=== PATIENT | male | born 1970 | race Caucasian/White ===

== ENCOUNTER 2025-08-01 23:23 | Inpatient (IN) | payer BC ==
[~2025-08-01] VITALS: Ht 190.5 cm; Wt 121.3 kg
[2025-08-01] MEDS ORDERED: ASPIRIN 81 MG CHEW PO ONE (23:30)
[2025-08-01 23:39] LABS: BASOPHILS 0.3 % (0.2-1.2); EOSINOPHILS 0 % (0.8-7.0); LYMPHOCYTES 5.9 % (21.8-53.1); MCH 30.2 PG (25.7-32.2); MCHC 32.7 g/dL (32.3-36.5); MCV 92.4 fL (79.0-92.2); MONOCYTES 4.3 % (5.3-12.2); NEUTROPHILS 88.7 % (34.0-67.9); RBC 5.79 M/uL (4.63-6.08)
[2025-08-01] MEDS ORDERED: FAMOTIDINE 20 MG/ 2 ML VIAL IV ONE (23:45)
[2025-08-01] MEDS ORDERED: LACTATED RINGER'S 1,000 ML IV ONE (23:45)
[2025-08-01 23:57] LABS: INR 1.17 (0.80-1.30); PROTIME 14.1 Sec (11.2-14.2)
[2025-08-02] VITALS (22 sets, daily range): BP systolic 91–124; BP diastolic 57–77
[2025-08-02 00:06] LABS: ALT (SGPT) 25 U/L (14-59); AST (SGOT) 10 U/L (15-37); GLOMERULAR FILTRATION RATE,EST 28 mL/min (>60); PROTEIN, TOTAL 8.9 g/dL (6.4-8.2); UREA NITROGEN 43 mg/dL (7-18)
[2025-08-02 00:13] LABS: LACTIC ACID, BLOOD 4.8 mmol/L (0.4-2.0)
[2025-08-02] MEDS ORDERED: LACTATED RINGER'S 1,000 ML IV ONE ×4 (00:15→03:30)
[2025-08-02 00:26] LABS: BASE EXCESS, BLOOD GAS -27.4 mmol/L (-2-2); HCO3, BLOOD GAS 2.5 mmol/L (22-26); O2 SATURATION, BLOOD GAS 99.4 % (95.0-100.0); OXYGEN RECEIVED, BLOOD GAS RA; PCO2, BLOOD GAS 10.6 mmHg (35-45); PH, BLOOD GAS 6.98 (7.35-7.45); PO2, BLOOD GAS 142 mmHg (80-100); TOTAL CO2, BLOOD GAS 2.9
[2025-08-02] MEDS ORDERED: INSULIN REGULAR IN 0.9 % NACL 100 ML IV SCH ×2 (00:30→05:30)
[2025-08-02] MEDS ORDERED: Insulin Regular, Human 100 UNIT/ML ML IV ONE (00:30)
[2025-08-02] MEDS ORDERED: SODIUM BICARBONATE 150 MEQ in SODIUM CHLORIDE 0.45% 1,000 ML IV SCH (01:30)
[2025-08-02 02:02] LABS: BLOOD/HGB, URINE TRACE-I (Negative); KETONE, URINE >=80 (Negative); LEUK ESTERASE, URINE NEGATIVE (negative); NITRITE, URINE NEGATIVE (negative)
[2025-08-02 02:17] LABS: AMPHETAMINES, URINE NEGATIVE (NEGATIVE); BARBITURATES, URINE NEGATIVE (NEGATIVE); BENZODIAZEPINE, URINE NEGATIVE (NEGATIVE); CANNABINOID, URINE NEGATIVE (NEGATIVE); COCAINE, URINE NEGATIVE (NEGATIVE); ECSTASY, URINE NEGATIVE (NEGATIVE); FENTANYL, URINE NEGATIVE (NEGATIVE); METHADONE, URINE NEGATIVE (NEGATIVE); OPIATES, URINE NEGATIVE (NEGATIVE); OXYCODONE, URINE NEGATIVE (NEGATIVE); PHENCYCLIDINE, URINE NEGATIVE (NEGATIVE)
[2025-08-02 02:18] LABS: BACTERIA, URINE 2+ /hpf (negative); CASTS, URINE HYALINE 2+ \\lpf; CRYSTALS, URINE NONE SEEN (0-1+); EPITHELIAL CELLS, URINE NONE SEEN /lpf (0-1+); REFLEX CULTURE, URINE Yes (No)
[2025-08-02] MEDS ORDERED: SODIUM BICARBONATE 50 MEQ/50 ML VIAL ONE (02:44)
[2025-08-02 03:08] LABS: GLOMERULAR FILTRATION RATE,EST 40.0 mL/min (>60); UREA NITROGEN 42.0 mg/dL (7-18)
[2025-08-02] MEDS ORDERED: DEXTROSE 5% 1,000 ML IV PRN ×2 (03:30→10:45)
[2025-08-02] MEDS ORDERED: IBLOOD GLUCOSE TEST STRIP 1 EA TEST XX PRN ×2 (03:30→10:45)
[2025-08-02] MEDS ORDERED: METOCLOPRAMIDE HCL 10 MG TAB PO ONE (03:30)
[2025-08-02] MEDS ORDERED: DEXTROSE 50% 50 ML SYR IV PRN ×4 (03:30→10:45)
[2025-08-02] MEDS ORDERED: GLUCAGON,HUMAN RECOMBINANT 1 MG/ML VIAL SUB-Q PRN ×2 (03:30→10:45)
[2025-08-02] MEDS ORDERED: IBLOOD GLUCOSE TEST STRIP 1 EA TEST VI SCH ×2 (04:00→12:00)
[2025-08-02] MEDS ORDERED: AZITHROMYCIN 500 MG in DEXTROSE 5% 250 ML IV ONE (05:00)
[2025-08-02] MEDS ORDERED: DIGOXIN 500 MCG/2 ML AMP IV ONE (05:15)
[2025-08-02] MEDS ORDERED: LACTATED RINGER'S 1,000 ML IV SCH ×2 (05:30→19:00)
[2025-08-02] MEDS ORDERED: DIGOXIN 500 MCG/2 ML AMP ONE (05:36)
[2025-08-02 07:40] LABS: BASE EXCESS, BLOOD GAS -10.4 mmol/L (-2-2); HCO3, BLOOD GAS 12.8 mmol/L (22-26); O2 SATURATION, BLOOD GAS 94.9 % (95.0-100.0); OXYGEN RECEIVED, BLOOD GAS RA; PCO2, BLOOD GAS 22.6 mmHg (35-45); PH, BLOOD GAS 7.36 (7.35-7.45); PO2, BLOOD GAS 67 mmHg (80-100); TOTAL CO2, BLOOD GAS 13.5
[2025-08-02 08:17] LABS: GLOMERULAR FILTRATION RATE,EST 59.0 mL/min (>60); UREA NITROGEN 31.0 mg/dL (7-18)
[2025-08-02] MEDS ORDERED: PANTOPRAZOLE SODIUM 40 MG TABEC PO SCH (10:36)
[2025-08-02] MEDS ORDERED: ACETAMINOPHEN 325 MG TAB PO PRN (10:45)
[2025-08-02] MEDS ORDERED: PROCHLORPERAZINE EDISYLATE 10 MG/2 ML VIAL IV PRN (10:45)
--- NOTE | 2025-08-02 10:45 | EKG ---
[facility] [address] [place], [place] [address] Signed Atrial flutter with variable AV block Nonspecific ST abnormality Abnormal ECG No previous ECGs available Confirmed by Juan Ramon Ignacio DO ([id number]) on 08/02/2025 10:45:36 AM Electronically Signed By: JUAN RAMON IGNACIO DO 08/02/25 1045 PATIENT NAME: DEBRA WEINSTEIN ALEX Electrocardiogram DATE OF : 66 PHYSICIAN: JUAN RAMON IGNACIO DO REPORT #: [id number] REPORT IS CONFIDENTIAL AND NOT TO BE RELEASED WITHOUT AUTHORIZATION
[2025-08-02] MEDS ORDERED: DEXTROSE 5% - NACL 0.9% 1,000 ML IV SCH (11:30)
[2025-08-02] MEDS ORDERED: DIGOXIN 500 MCG/2 ML AMP IV SCH (11:30)
[2025-08-02] MEDS ORDERED: PHARMACY RENAL DOSE ADJUSTMENT 1 DOSE MISC PO SCH (12:00)
[2025-08-02] MEDS ORDERED: APIXABAN 5 MG TAB PO SCH (12:00)
[2025-08-02] MEDS ORDERED: INSULIN LISPRO 100 UNIT/ML ML SUB-Q SCH (12:00)
[2025-08-02 12:36] LABS: TSH, 3RD GENERATION 0.129 uIU/mL (0.358-3.740)
[2025-08-02 12:46] LABS: GLOMERULAR FILTRATION RATE,EST 68.0 mL/min (>60); UREA NITROGEN 30.0 mg/dL (7-18)
[2025-08-02] MEDS ORDERED: METFORMIN HCL1000 MG PO (13:08)
[2025-08-02] MEDS ORDERED: LISINOPRIL20 MG PO (13:08)
[2025-08-02 13:20] LABS: PHOSPHORUS, INORGANIC 1.4 mg/dL (2.5-4.9)
[2025-08-02] MEDS ORDERED: INSULIN GLARGINE-YFGN 100 UNIT/ML ML SUB-Q SCH ×2 (13:45→21:00)
[2025-08-02] MEDS ORDERED: POTASSIUM PHOSPHATE 30 MMOL in DEXTROSE 5% 500 ML IV ONE (16:15)
[2025-08-02] MEDS ORDERED: MAGNESIUM SULFATE 2 GM/50 ML BAG IV ONE (16:15)
[2025-08-02] MEDS ORDERED: METOPROLOL TARTRATE 25 MG TAB PO ONE (18:45)
[2025-08-02] MEDS ORDERED: METOPROLOL TARTRATE 25 MG TAB PO PRN (20:30)
[2025-08-02] MEDS ORDERED: MELATONIN 3 MG TAB PO PRN (21:00)
[2025-08-03] VITALS (31 sets, daily range): BP systolic 81–127; BP diastolic 59–85
[2025-08-03] MEDS ORDERED: METOPROLOL TARTRATE 25 MG TAB PO ONE (01:30)
[2025-08-03] MEDS ORDERED: AMIODARONE/DEXTROSE 200 ML IV ONE ×3 (04:30→10:19)
[2025-08-03 05:21] LABS: BASOPHILS 0.1 % (0.2-1.2); EOSINOPHILS 0.1 % (0.8-7.0); LYMPHOCYTES 25.4 % (21.8-53.1); MCH 29.7 PG (25.7-32.2); MCHC 34.3 g/dL (32.3-36.5); MCV 86.4 fL (79.0-92.2); MONOCYTES 8.8 % (5.3-12.2); NEUTROPHILS 65.6 % (34.0-67.9); RBC 4.62 M/uL (4.63-6.08)
[2025-08-03 05:32] LABS: GLOMERULAR FILTRATION RATE,EST 86.0 mL/min (>60); UREA NITROGEN 16.0 mg/dL (7-18)
[2025-08-03] MEDS ORDERED: INSULIN GLARGINE-YFGN 100 UNIT/ML ML SUB-Q ONE (08:00)
[2025-08-03] MEDS ORDERED: SODIUM PHOSPHATE 30 MMOL in DEXTROSE 5% 250 ML IV ONE (08:00)
[2025-08-03] MEDS ORDERED: MAGNESIUM OXIDE 400 MG TABLET PO ONE (08:00)
[2025-08-03] MEDS ORDERED: POTASSIUM CHLORIDE 10 MEQ TABCR PO ONE (08:00)
[2025-08-03] MEDS ORDERED: AZITHROMYCIN 250 MG TAB PO SCH (09:00)
[2025-08-03] MEDS ORDERED: METOPROLOL TARTRATE 25 MG TAB PO SCH (09:00)
[2025-08-03] MEDS ORDERED: POTASSIUM PHOSPHATE 30 MMOL in DEXTROSE 5% 500 ML IV ONE (09:00)
[2025-08-03] MEDS ORDERED: DEXTROSE 5% IV ONE (09:30)
[2025-08-03] MEDS ORDERED: POTASSIUM PHOSPHATE IV ONE (09:30)
[2025-08-03] MEDS ORDERED: METOPROLOL SUCCINATE 50 MG TABCR PO SCH (21:00)
[2025-08-03] MEDS ORDERED: MENTHOL/CETYLPYRD CL 1 LOZ LOZENGE MM PRN (22:00)
[2025-08-03] MEDS ORDERED: BENZONATATE 100 MG CAP PO PRN (22:00)
[2025-08-03] MEDS ORDERED: AMIODARONE HCL 180 MG in SODIUM CHLORIDE 0.9% 96.4 ML IV ONE (22:19)
[2025-08-04] VITALS (13 sets, daily range): BP systolic 104–170; BP diastolic 68–96
[2025-08-04 05:36] LABS: BASOPHILS 0.3 % (0.2-1.2); EOSINOPHILS 0.7 % (0.8-7.0); LYMPHOCYTES 26.7 % (21.8-53.1); MCH 30.3 PG (25.7-32.2); MCHC 35.0 g/dL (32.3-36.5); MCV 86.6 fL (79.0-92.2); MONOCYTES 13.2 % (5.3-12.2); NEUTROPHILS 58.8 % (34.0-67.9); RBC 4.19 M/uL (4.63-6.08)
[2025-08-04 05:45] LABS: ALT (SGPT) 20.0 U/L (14-59); AST (SGOT) 14.0 U/L (15-37); GLOMERULAR FILTRATION RATE,EST 104.0 mL/min (>60); PHOSPHORUS, INORGANIC 2.6 mg/dL (2.5-4.9); PROTEIN, TOTAL 5.6 g/dL (6.4-8.2); UREA NITROGEN 10.0 mg/dL (7-18)
[2025-08-04] MEDS ORDERED: POTASSIUM CHLORIDE 10 MEQ TABCR PO ONE (08:45)
[2025-08-04] MEDS ORDERED: AMIODARONE HCL 200 MG TAB PO SCH ×2 (09:00→21:00)
[2025-08-04] MEDS ORDERED: EMPAGLIFLOZIN 25 MG TAB PO SCH (10:40)
[2025-08-04] MEDS ORDERED: INSULIN LISPRO 100 UNIT/ML ML SUB-Q SCH (17:00)
[2025-08-04] MEDS ORDERED: GLUCAGON,HUMAN RECOMBINANT 1 MG/ML VIAL SUB-Q PRN (17:15)
[2025-08-04] MEDS ORDERED: IBLOOD GLUCOSE TEST STRIP 1 EA TEST XX PRN (17:15)
[2025-08-04] MEDS ORDERED: DEXTROSE 50% 50 ML SYR IV PRN ×2 (17:15)
[2025-08-04] MEDS ORDERED: DEXTROSE 5% 1,000 ML IV PRN (17:15)
[2025-08-04] MEDS ORDERED: BENZONATATE 100 MG CAP PO PRN (17:30)
[2025-08-04] MEDS ORDERED: ACETAMINOPHEN 325 MG TAB PO PRN (17:30)
[2025-08-04] MEDS ORDERED: MENTHOL/CETYLPYRD CL 1 LOZ LOZENGE MM PRN (17:30)
[2025-08-04] MEDS ORDERED: PROCHLORPERAZINE EDISYLATE 10 MG/2 ML VIAL IV PRN (17:30)
[2025-08-04] MEDS ORDERED: MELATONIN 3 MG TAB PO PRN (17:30)
[2025-08-04] MEDS ORDERED: METOPROLOL SUCCINATE 50 MG TABCR PO SCH (21:00)
[2025-08-04] MEDS ORDERED: METOPROLOL TARTRATE 50 MG TAB PO SCH (21:00)
[2025-08-04] MEDS ORDERED: APIXABAN 5 MG TAB PO SCH (21:00)
[2025-08-04] MEDS ORDERED: Insulin Regular, Human 100 UNIT/ML ML SUB-Q SCH (21:00)
[2025-08-04] MEDS ORDERED: IBLOOD GLUCOSE TEST STRIP 1 EA TEST VI SCH ×2 (21:00)
[2025-08-05] VITALS (8 sets, daily range): BP systolic 122–154; BP diastolic 69–80
[2025-08-05] MEDS ORDERED: PANTOPRAZOLE SODIUM 40 MG TABEC PO SCH (09:00)
[2025-08-05] MEDS ORDERED: AZITHROMYCIN 250 MG TAB PO SCH (09:00)
[2025-08-05] MEDS ORDERED: AMIODARONE HCL200 MG PO (11:06)
[2025-08-05] MEDS ORDERED: ELIQUIS5 MG PO (11:06)
[2025-08-05] MEDS ORDERED: METOPROLOL SUCC50 MG PO (11:07)
[2025-08-05] MEDS ORDERED: JARDIANCE25 MG PO (11:12)
== END 2025-08-05 15:00 | disposition home or self-care (01) | DRG 308 ==
LOC: ED 23:23 → CCU 08-02 05:14 → MS 08-04 13:35
PROVIDERS: Internal Medicine; ADMIT Student in an Organized Health Care Education/Training Program; ATTEND Student in an Organized Health Care Education/Training Program
PROC: 02HV33Z Insertion of Infusion Device into Superior Vena Cava, Percutaneous Approach (ICD-10-PCS; principal; 2025-08-02)
PROC: 4A033R1 Measurement of Arterial Saturation, Peripheral, Percutaneous Approach (ICD-10-PCS; 2025-08-02)
PROC: 3E03329 Introduction of Other Anti-infective into Peripheral Vein, Percutaneous Approach (ICD-10-PCS; 2025-08-02)
DX: I48.92 Unspecified atrial flutter (principal); E11.10 Type 2 diabetes mellitus with ketoacidosis without coma; N39.0 Urinary tract infection, site not specified; N17.9 Acute kidney failure, unspecified; I48.91 Unspecified atrial fibrillation; I10 Essential (primary) hypertension; D69.6 Thrombocytopenia, unspecified; E66.9 Obesity, unspecified
CPT/HCPCS: 36415; 36592; 36600; 71045; 71260; 74177; 80048; 80053; 80307; 81001; 82010; 82803; 82947; 83036; 83605; 83735; 83880; 84100; 84439; 84443; 84484; 85025; 85379; 85610; 85730; 87088; 93005; 93010; 93306; 97161; 97165; A9270; C1751; J0282; J0456; J0696; J1160; J1815; J3475; J7030; J7042; J7060; J7121; Q9967